=== PATIENT | male | born 1940 | race Caucasian/White ===

== ENCOUNTER 2018-04-27 10:46 | Emergency (ER) | payer MEDICARE, OTHER ==
[2018-04-27 11:02] VITALS: BP 153/83; PULSE 89; RESP 16; TEMP 98.3
[2018-04-27] MEDS ORDERED: DIPH,PERTUS(ACELL)TETVAC-LF 0.5 ML VIAL IM ONE (12:13)
[2018-04-27] MEDS ORDERED: LIDOCAINE 1% INJ 10MG/ML (20 ML MDV) SQ ONE (12:13)
--- NOTE | 2018-04-27 12:20 | ED ---
Wound/Laceration HPI - General Chief Complaint: Wound/Laceration Stated Complaint: R index finger laceration Time Seen by Provider: 04/27/18 12:11 Source: patient, RN notes reviewed Mode of arrival: ambulatory Limitations: no limitations - History of Present Illness Initial Comments: This is a 77-year-old male who presents to the emergency department with chief complaint of right index finger laceration. Patient states that between 9:30 and 10 AM this morning he was at the [employer]. He states that he was talking to somebody and slammed his car door. He states that his right index finger was caught in the door and he lacerated the pad of it. Patient states that he is unsure if he is up-to-date with his tetanus vaccination. He reports normal range of motion and sensation. Denies any other injuries or trauma. Denies fever, chills, chest pain, shortness of breath, abdominal pain, nausea or vomiting, numbness or tingling. - Related Data Allergies Allergy/AdvReac Type Severity Reaction Status Date / Time No Known Allergies Allergy Verified 04/27/18 10:58 Review of Systems ROS Statement: Those systems with pertinent positive or pertinent negative responses have been documented in the HPI. ROS Other: All systems not noted in ROS Statement are negative. Past Medical History Past Medical History: Hyperlipidemia, Hypertension History of Any Multi-Drug Resistant Organisms: None Reported Additional Past Surgical History / Comment(s): bowel surgery Past Psychological History: Depression Smoking Status: Former smoker Past Alcohol Use History: Occasional Past Drug Use History: None Reported General Exam - General Exam Comments Initial Comments: General: Awake and alert, well-developed; in no apparent distress. HEENT: Head atraumatic, normocephalic. Pupils are equal, round and reactive to light. Extraocular movements intact. Oropharynx moist without erythema or exudate. Neck: Supple. Normal ROM. Cardiovascular: Regular rate and rhythm. No murmurs, rubs or gallops. Chest symmetrical. Respiratory: Lungs clear to auscultation bilaterally. No wheezes, rales or rhonchi. Normal respiratory effort with no use of accessory muscles. Musculoskeletal: Normal range of motion of the right index finger. There is an approximately 2.0 cm linear laceration at the distal pad of the right index finger. Bleeding is controlled. Sensation is intact. Radial pulses are 2+ equal and palpable bilaterally. Skin: [place], warm and dry without rashes. Neurological: Alert and oriented x3. CN II-XII grossly intact. Speech is fluent and answers are appropriate. No focal neuro deficits. Psychiatric: Normal mood and affect. No overt signs of depression or anxiety noted. Limitations: no limitations Course Vital Signs 04/27/18 04/27/18 10:58 12:13 Temperature 98.3 F Pulse Rate 89 Respiratory 16 16 Rate Blood Pressure 153/83 O2 Sat by Pulse 97 98 Oximetry Procedures - Laceration Laceration #1 Consent Obtained: verbal consent Indication: laceration Site: hand (right distal index finger ) Size (cm): 2 Description: linear Depth: simple, single layer Anesthetic Used: lidocaine 1% Anesthesia Technique: nerve block Amount (mls): 3 Pre-repair: wound explored, irrigated extensively, deep structures intact Type of Sutures: nylon Size of Sutures: 5-0 Number of Sutures: 4 Technique: simple, interrupted Patient Tolerated Procedure: well, no complications Medical Decision Making - Medical Decision Making This is a 77-year-old male who presents to the emergency department with chief complaint of right index finger laceration. Patient slammed his finger in the car door. He is neurovascularly intact and has normal range of motion. He sustained an approximately 2.0 cm linear laceration at the distal pad of the right index finger. Patient was made up-to-date with tetanus vaccination. 4 sutures were placed and patient tolerated well without complication. X-ray of the right index finger was obtained and revealed no acute osseous lesions. Recommended removal of sutures in 10-14 days. Patient's vital signs are stable and he is in no acute distress. He is in agreement with plan and voices understanding. Patient will be discharged home at this time. All questions answered. - Radiology Data Radiology results: report reviewed X-ray right index finger impression: No acute osseous lesion. Degenerative change. As read by Dr. Easton. Disposition Clinical Impression: Laceration of index finger Disposition: HOME SELF-CARE Condition: Good Instructions: Finger Laceration (ED) Additional Instructions: Please have sutures removed in 10-14 days. Please monitor for any signs of infection including redness, warmth or increased tenderness. Please follow up with primary care provider within 1-2 days. Return to emergency department if symptoms should worsen or any concerns arise. Is patient prescribed a controlled substance at d/c from ED?: No Referrals: Noris Abreu MD [Primary Care Provider] - 1-2 days Time of Disposition: 13:00
--- NOTE | 2018-04-27 12:46 | XR ---
EXAMINATION TYPE: XR finger RT , 3 VIEWS DATE OF EXAM ORDERED: 04/27/2018 HISTORY: index finger lac. COMPARISON: None. FINDINGS: No fracture or dislocation is seen. There are degenerative changes in the DIP joint. IMPRESSION: 1. NO ACUTE OSSEOUS LESION. 2. DEGENERATIVE CHANGE.
== END 2018-04-27 13:00 | disposition home or self-care (01) ==
LOC: EC 10:46
DX: S61.210A Laceration without foreign body of right index finger without damage to nail, initial encounter (principal); Z87.891 Personal history of nicotine dependence; Z23 Encounter for immunization; W23.0XXA Caught, crushed, jammed, or pinched between moving objects, initial encounter; Y92.89 Other specified places as the place of occurrence of the external cause
CPT/HCPCS: 73140; 90715; 99283; 12001; 90471; J2001

== ENCOUNTER → 2019-04-14 | Outpatient (CLI) | payer MEDICARE | END | disposition home or self-care (01) | LOC: LABWHC1 08:54 | PROVIDERS: ATTEND Orthopaedic Surgery | DX: Z01.812 Encounter for preprocedural laboratory examination (principal) | CPT/HCPCS: 87070 ==

== ENCOUNTER 2019-05-27 06:20 | Inpatient (IN) | payer MEDICARE ==
[2019-05-16 13:57] VITALS: BMI 31.6
--- NOTE | 2019-05-27 02:38 | HP ---
HISTORY AND PHYSICAL CHIEF COMPLAINT: Right knee pain. HISTORY OF PRESENT ILLNESS: The patient is a 78-year-old retired gentleman who presents with progressive right knee pain, worsening over the past 6 months. He is having pain with any attempted weightbearing activities. He has tried medications along with injections with only partial temporary relief. PAST MEDICAL HISTORY: Significant for arthritis, hypertension, hypercholesterolemia, benign prostatic hypertrophy, hyperlipidemia, colon cancer, type 2 diabetes. PAST SURGICAL HISTORY: Significant for bowel resection, bilateral hernia repair, bilateral knee arthroscopy, right knee arthrotomy. FAMILY HISTORY: Significant for cancer. SOCIAL HISTORY: Significant for current alcohol use. REVIEW OF SYSTEMS: Sixteen point review of systems otherwise reviewed and is noncontributory. CURRENT MEDICATIONS: Aspirin, Celexa, Cozaar, metformin, simvastatin, Symbicort. He denies drug allergies. PHYSICAL EXAMINATION: On examination, the patient is approximately 5 foot 7, 210 pounds, of mesomorphic habitus. HEENT exam is nonfocal. Neck is supple. He has painless passive motion of the right hip. Straight leg raise is negative. Active motion right knee -12 to 105 degrees of flexion. There is a large effusion. He is tender about the medial joint line. Collaterals are stable, Keshawn is negative, Norma's is equivocal. He has genu varum alignment. His distal neurovascular appears intact in the right lower extremity. Previous x-rays of the right knee obtained in the office show severe medial and patellofemoral compartment narrowing. IMPRESSION: 1. 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 2. Trw-xrjzvay-upanfaweu diabetes. RECOMMENDATIONS: I talked to the patient at length regarding his condition along with treatment options. At this point, he remains quite symptomatic despite conservative measures. After a thorough discussion, he opts to proceed with surgery. We will plan to proceed with right total knee arthroplasty. We will institute DVT prophylaxis postoperatively. The patient underwent preoperative medical evaluation by Dr. Abreu. MMPACHECOL / IJN: [id number] /
[~2019-05-27 06:20] MED LIST: ACETAMINOPHEN TAB 500 MG TAB PO ONE; HYDROmorphone 0.5 MG/0.5 ML SYRINGE IVP PRN; MELOXICAM 7.5 MG TAB PO ONE; TRANEXAMIC ACID 1,000 MG in SODIUM CHLORIDE 0.9% 100 ML IVPB ONE
[2019-05-27] MEDS: LACTATED RINGERS 1,000 ML IV SCH ×2 (07:07→10:47)
[2019-05-27] MEDS ORDERED: MIDAZOLAM (PF) 2 MG/2 ML VIAL IVP ONE (07:17)
[2019-05-27] MEDS ORDERED: TRANEXAMIC ACID 1,000 MG/10 ML VIAL ONE (07:44)
[2019-05-27] MEDS ORDERED: fentaNYL (PF) 50 MCG/ML 2 ML AMP ONE (07:44)
[2019-05-27] MEDS ORDERED: SODIUM CHLORIDE 0.9% 100 ML BAG ONE (07:44)
[2019-05-27] MEDS ORDERED: MIDAZOLAM 2 MG/2 ML VIAL ONE (07:44)
[2019-05-27] MEDS ORDERED: LIDOCAINE 1% 20 ML VIAL (10MG/ML) FOR IV START SQ ONE (07:51)
[2019-05-27] MEDS ORDERED: ROPIVACAINE 246.25 MG, EPINEPHrine 0.5 MG, KETOROLAC 30 MG, cloNIDine HCL/PF 80 MCG, WA... MISCELLANE ONE ×5 (08:08)
[2019-05-27] MEDS ORDERED: ceFAZolin 3,000 MG in SODIUM CHLORIDE 0.9% IRRIGATIO 3,000 ML IRRIGATION ONE (08:31)
[2019-05-27] MEDS ORDERED: LACTATED RINGERS 1,000 ML IV ONE (09:04)
[2019-05-27] MEDS ORDERED: traMADol 50 MG TAB PO PRN (09:48)
[2019-05-27] MEDS ORDERED: ONDANSETRON 4 MG/2 ML VIAL IVP PRN (09:48)
[2019-05-27] MEDS ORDERED: ACETAMINOPHEN TAB 325 MG TAB PO PRN (09:48)
[2019-05-27] MEDS ORDERED: MAGNESIUM HYDROXIDE 2,400 MG/10 ML CUP PO PRN (09:48)
[2019-05-27] MEDS ORDERED: NALOXONE 0.4 MG/ML 1 ML VIAL IV PRN (09:48)
[2019-05-27] MEDS ORDERED: HYDROcodone/APAP 5-325MG 1 EACH TAB PO PRN ×2 (09:48)
[2019-05-27] MEDS ORDERED: ROPIVACAINE 0.2%-NS ON-Q PUMP 1,090 MG, EMPTY PAIN BALL 1 EACH MISCELLANE PRN (10:16)
--- NOTE | 2019-05-27 10:16 | P.OP ---
Date of Procedure: 05/27/19 Preoperative Diagnosis: Right knee severe tricompartmental osteoarthrosis Postoperative Diagnosis: Same Procedure(s) Performed: Right total knee arthroplastycementedposterior stabilized Implants: [employer] journey 2 size 6 cemented femoral component, size 5 cemented tibial component, 10 mm articular surface, 35 mm cemented patellar component. This is a posterior stabilized implant. Anesthesia: regional, local, spinal Surgeon: Steven Turner Rn Embedded #1: Fransico Anaya Estimated Blood Loss (ml): 50 Pathology: other (Bone fragments) Condition: stable Disposition: PACU Indications for Procedure: The patient's a 78-year-old male who presents to progressive right knee pain secondary osteoarthrosis despite conservative measures. A discussion of the risks and benefits of operative intervention versus continued conservative measures was made with patient. To proceed with surgery. Operative risks to include infection, neurovascular injury, development of blood clots, possible component loosening, possible component failure, and possible need for subsequent procedures was discussed. Informed consent was obtained. Operative Findings: As below Description of Procedure: The patient was brought to the operating room, and after induction of spinal anesthesia the right lower extremity was prepped and draped in a normal fashion. The tourniquet was inflated to 270 mm of mercury. A longitudinal incision extending 3 finger breaths above the superior pole of patella extending to the medial aspect the tibial tubercle was then made. The skin and subcutaneous tissues were divided sharply. Electrocautery was used for hemostasis. A medial parapatellar arthrotomy was performed. The medial soft tissues to include the superficial and deep portions of the medial collateral ligament were elevated subperiosteally. The patella was everted. A portion of the retropatellar fat pad was excised sharply. The anterior cruciate ligament was sacrificed. Blunt retractors were placed. A starting hole was made in the distal femur 1 cm anterior to the posterior cruciate ligament origin. An intramedullary femoral guide was then inserted planning on 5 valgus distal cut with 9 mm distal resection. The cutting block was pinned in place. The distal cut was then made. The posterior referencing sizing guide was utilized. I felt size 6 was most appropriate. 3 of external rotation was built into the system and verified off the trans-epicondylar axis and the posterior condyles. The cutting block was pinned in place. The anterior, posterior, and chamfer cuts then made. Bone fragments were removed. The intercondylar guide was placed and the notch cut was made with a reamer. The trial component was then placed. There was good anterior to posterior and medial to lateral fit. The distal peg holes were drilled. The trial component was removed. Attention was then paid towards preparing the proximal tibia. An extra medullary guide was utilized in line with the tibial shaft and second metatarsal distally. I planned on 2 mm resection from the medial compartment. The cutting block was pinned in place. The proximal tibial cut was then made. The bone was removed in one fragment. The remnants of the medial and lateral menisci were excised at the capsular junction with electrocautery. The tibia sized most appropriately at size 5. The trial femoral and tibial components were placed along with a 10 mm articular surface. I was able to obtain full flexion and extension with internal and external rotation. After several flexion and extension cycles, the tibial rotation was marked with electrocautery line with the medial one third of the tibial tubercle. Attention was then paid towards preparing the patella. A patella reamer was utilized taking stem to 14 mm of bone stock. A good flush cut was made. The patella sized most appropriately 35 mm. The peg holes were drilled. The trial components placed. I had good patellofemoral tracking with no hands technique. The trial components were then removed. The tibia was prepared in the appropriate rotation with appropriate drill and keel punch. The posterior osteophytes were removed with a curved osteotome. The flexion and extension gaps were checked and felt to be symmetric at 10 mm. A trial components were then removed. The posterior soft tissues were injected with ropivacaine. The bony surfaces were prepared with pulsatile lavage and dried. The tibial component was then cemented place was fully seated. Excess cement was removed. The femoral component cemented place and was fully seated. Excess cement was removed. The trial 10 mm articular surface was placed and the knee was put in full extension. The patella component was cemented place. After the cement had sufficiently hardened, the knee was again taken through a range of motion. Again I was able to obtain full flexion and extension with varus and valgus stress. The trial 10 mm articular surface was removed and the final one inserted. This was fully seated. Care was taken to avoid any soft tissue interposition. Pulsatile lavage was again utilized. The medial parapatellar arthrotomy was closed with #2 Ethibond suture. The tourniquet was deflated with approximately 70 minutes total tourniquet time. Final hemostasis was obtained with the cautery. There was minimal bleeding therefore a deep drain was not placed. The subcutaneous tissues were reapproximated with interrupted 2-0 Vicryl sutures. The skin was reapproximated with 3-0 subcuticular strata fix suture. Skin tape and adhesive was applied. A sterile dressing was applied. The patient was awoken from sedation and transferred to recovery room in good condition. Blood loss was estimated at 50 mL. No complications were incurred. Sponge and needle counts were correct at the end of the case. Miguel QUEEN assisted during the major components of this case to include exposure, bone resection, implantation, and closure.
--- NOTE | 2019-05-27 10:40 | P.ANPRN ---
Procedure Note - Anesthesia - Nerve Block Performed Right Adductor Canal Infusion Time Out Performed: Yes Date of Procedure: 05/27/19 Procedure Start Time: 07:34 Procedure Stop Time: 07:46 Location of Patient Procedure: PreOp Indication: Acute Post-Operative Pain, Requested by Surgeon Sedation Type: Sedate with meaningful contact maintained Preparation: Sterile Prep, Sterile Dressing Position: Supine Catheter: Indwelling Needle Types: Pajunk Needle Gauge: 21 Ultrasound used to visualize needle placement: Yes Ultrasound used to observe medication spread: Yes Injectate: 0.5% Ropivacaine (see comment for volume) (ropi .5% 20cc) Blood Aspirated: No Pain Paresthesia on Injection Noted: No Resistance on Injection: Normal Image Stored and Saved: Yes Events: Uneventful and Well Tolerated
--- NOTE | 2019-05-27 10:45 | XR ---
EXAMINATION TYPE: XR knee limited RT DATE OF EXAM: 05/27/2019 CLINICAL HISTORY: Right knee pain and arthritis status post total knee replacement. TECHNIQUE: Portable AP and crosstable lateral views of the right knee are obtained immediately posto peratively. COMPARISON: None FINDINGS: Metallic hardware from total right knee arthroplasty is seen and appears satisfactory in a lignment and position. There is evidence of recent surgery with diffuse soft tissue swelling and sub cutaneous emphysema noted. IMPRESSION: METALLIC HARDWARE FROM TOTAL RIGHT KNEE ARTHROPLASTY IS SATISFACTORY IN ALIGNMENT.
--- NOTE | 2019-05-27 12:15 | P.CONS ---
History of Present Illness - Reason for Consult Consult date: 05/27/19 Medical management Requesting physician: Steven Turner - History of Present Illness This is a 78-year-old male patient who presented for an elective total right knee arthroplasty with Dr. Landers. EBL 50. Patient has a known past medical history of osteoarthritis, colon cancer in which she underwent resection approximately 3 years ago diabetes mellitus diet controlled, hyperlipidemia, essential hypertension and ex-smoker. Patient is resting comfortably in bed. Family is at bedside. Patient has minimal complaints of pain to right knee site dressing is clean dry and intact. Patient denies any significant history of irregular heart rate. Patient denies history of DVT or PE. Patient denies chest pain or shortness of breath. Patient denies nausea vomiting or diarrhea. Patient denies any urinary burning or frequency. Review of Systems Please refer to HPI otherwise unremarkable Past Medical History Past Medical History: Cancer, Diabetes Mellitus, Hyperlipidemia, Hypertension, Osteoarthritis (OA), Pneumonia, Prostate Disorder Additional Past Medical History / Comment(s): colon cancer, borderline diabetic- diet control, History of Any Multi-Drug Resistant Organisms: None Reported Past Surgical History: Bowel Resection, Orthopedic Surgery Additional Past Surgical History / Comment(s): open rt knee surgery, [place] knee arthroscopy, Past Anesthesia/Blood Transfusion Reactions: Motion Sickness Past Psychological History: No Psychological Hx Reported Smoking Status: Former smoker Past Alcohol Use History: Occasional Additional Past Alcohol Use History / Comment(s): quit smoking 1975, smoked from 6040-9940, < 1 PPD Past Drug Use History: None Reported - Past Family History Father Family Medical History: Cancer Mother Family Medical History: Cancer Brother(s) Family Medical History: Deep Vein Thrombosis (DVT) Medications and Allergies Home Medications Medication Instructions Recorded Confirmed Type Citalopram Hydrobromide 20 mg PO HS 05/16/19 05/27/19 History [Citalopram HBr] Ergocalciferol (Vitamin D2) 50,000 unit PO MO 05/16/19 05/27/19 History [Vitamin D2] Losartan Potassium [Cozaar] 100 mg PO HS 05/16/19 05/27/19 History Naproxen Sodium [Aleve] 220 mg PO Q12HR 05/16/19 05/27/19 History Simvastatin [Zocor] 20 mg PO HS 05/16/19 05/27/19 History Allergies Allergy/AdvReac Type Severity Reaction Status Date / Time No Known Allergies Allergy Verified 05/16/19 13:46 Physical Exam Vitals: Vital Signs Temp Pulse Resp BP Pulse Ox 05/27/19 10:46 127/70 05/27/19 10:45 65 16 94 L 05/27/19 10:32 65 16 132/77 94 L 05/27/19 10:15 67 16 139/63 94 L 05/27/19 10:09 97.0 F L 68 13 153/67 96 05/27/19 06:51 97.3 F L 74 16 157/74 95 Intake and Output 05/26/19 05/27/19 05/27/19 22:59 06:59 14:59 Intake Total 1201 Output Total 50 Balance 1151 Intake: IV 1201 Output: Estimated Blood Loss 50 Head normocephalic Neck supple Lungs clear to auscultation bilaterally no wheezing or crackles Heart regular rate and rhythm S1-S2, no rub or gallop Abdomen is soft nontender nondistended positive bowel sounds no hepatosplenomegaly Extremities no edema. Right knee dressing is clean dry and intact. Right knee block in place Neuro alert and orientated to 3 Assessment and Plan Assessment: 1. Status post total right knee arthroplasty with Dr. Landers. Postop day 0. Patient currently on Xarelto for DVT prophylaxis per orthopedic services. Pain meds per orthopedic services. 2. History of colon cancer. Patient underwent resection proximally 3 years ago no further treatment 3. History of hyperlipidemia. Patient maintained on Lipitor 4. History of essential hypertension home meds resumed 5. History of osteoarthritis 6. History of diabetes mellitus diet controlled 7. History of ex-smoker DVT prophylaxis xarelto. GI prophylaxis Pepcid A.m. labs ordered Thank you for this consultation we'll continue to follow patient closely throughout Time with Patient: Greater than 30 (Greater than 60% of the total time spent in counseling and coordination of care. I performed an examination of the patient and discussed their management with the Nurse Practitioner. I have reviewed the Nurse Practitioner's notes and agree with the documented findings and plan of care)
[2019-05-27] MEDS: HYDROmorphone 0.5 MG/0.5 ML SYRINGE IVP PRN (19:03)
[2019-05-27] MEDS: SENNOSIDES-DOCUSATE SODIUM 1 EACH TAB PO SCH (21:02)
[2019-05-27] MEDS: CITALOPRAM HYDROBROMIDE 20 MG TAB PO SCH (21:02)
[2019-05-27] MEDS: LOSARTAN 50 MG TAB PO SCH (21:02)
[2019-05-27] MEDS: ATORVASTATIN 10 MG TAB PO SCH (21:02)
[2019-05-28] MEDS: HYDROmorphone 0.5 MG/0.5 ML SYRINGE IVP PRN (01:21)
[2019-05-28] MEDS: LACTATED RINGERS 1,000 ML IV SCH (05:42)
[2019-05-28 07:36] LABS: ALT 29 U/L (21-72); AST 27 U/L (17-59); African American GFR (CKD) >90 (>60 ml/min/1.73 sqM); Albumin 3.6 g/dL (3.5-5.0); Alkaline Phosphatase 35 U/L (38-126); Anion Gap 8 mmol/L; Blood Urea Nitrogen 20 mg/dL (9-20); Calcium 8.2 mg/dL (8.4-10.2); Carbon Dioxide 25 mmol/L (22-30); Chloride 105 mmol/L (98-107); Glucose 135 mg/dL (74-99); Potassium 4.3 mmol/L (3.5-5.1); Sodium 138 mmol/L (137-145); Total Bilirubin 0.6 mg/dL (0.2-1.3); Total Protein 6.1 g/dL (6.3-8.2)
[2019-05-28 07:48] LABS: Basophils % (A) 0 %; Eosinophils # (A) 0.1 k/uL (0-0.7); Eosinophils % (A) 1 %; HCT 35.2 % (39.0-53.0); HGB 11.7 gm/dL (13.0-17.5); Lymphocytes # (A) 1.1 k/uL (1.0-4.8); Lymphocytes % (A) 11 %; MCHC 33.2 g/dL (31.0-37.0); MCV 96.4 fL (80.0-100.0); Monocytes # (A) 0.6 k/uL (0-1.0); Monocytes % (A) 7 %; Neutrophils # (A) 7.5 k/uL (1.3-7.7); Neutrophils % (A) 79 %; Platelet Count 263 k/uL (150-450); RBC 3.65 m/uL (4.30-5.90); RDW 13.5 % (11.5-15.5); WBC 9.4 k/uL (3.8-10.6)
[2019-05-28] MEDS: RIVAROXABAN 10 MG TAB PO SCH (08:37)
[2019-05-28] MEDS: FAMOTIDINE 20 MG TAB PO SCH (08:37)
--- NOTE | 2019-05-28 11:03 | P.PN ---
Subjective Progress Note Date: 05/28/19 This is a 78-year-old male patient who presented for an elective total right knee arthroplasty with Dr. Landers. EBL 50. Patient has a known past medical history of osteoarthritis, colon cancer in which she underwent resection approximately 3 years ago diabetes mellitus diet controlled, hyperlipidemia, e ssential hypertension and ex-smoker. Patient is resting comfortably in bed. Family is at bedside. Patient has minimal complaints of pain to right knee site dressing is clean dry and intact. Patient denies any significant history of irregular heart rate. Patient denies history of DVT or PE. Patient denies chest pain or shortness of breath. Patient denies nausea vomiting or diarrhea. Patient denies any urinary burning or frequency. On 05/28/2019 patient is alert and oriented 3. Patient reports increased pain to bring today compared to yesterday. Patient has been up planning to work with physical therapy. At this time patient denies chest pain or shortness breath. Patient denies nausea vomiting or diarrhea. Patient denies any urinary burning or frequency Objective - Vital Signs Vital signs: Vital Signs Temp 99.5 F 05/28/19 07:00 Pulse 95 05/28/19 07:00 Resp 17 05/28/19 07:00 BP 136/65 05/28/19 07:00 Pulse Ox 95 05/28/19 07:00 Intake & Output 05/27/19 05/28/19 05/28/19 18:59 06:59 18:59 Intake Total 1201 400 Output Total 50 Balance 1151 400 Intake: IV 1201 Intake, IV Titration 400 Amount Lactated Ringers 1,000 ml 400 @ 40 mls/hr IV .Q24H RONALD Rx#:[id number] Output: Estimated Blood Loss 50 Other: Voiding Method Urinal Toilet # Voids 1 1 - Exam Head normocephalic Neck supple Lungs clear to auscultation bilaterally no wheezing or crackles Heart regular rate and rhythm S1-S2, no rub or gallop Abdomen is soft nontender nondistended positive bowel sounds no hepatosplenomegaly Extremities no edema. Right knee dressing is clean dry and intact Neuro alert and orientated to 3 - Labs CBC & Chem 7: 05/28/19 07:05 05/28/19 07:05 Labs: Abnormal Lab Results - Last 24 Hours (Table) 09/04/19 09/04/19 Range/Units 07:05 07:05 RBC 3.65 L (4.30-5.90) m/uL Hgb 11.7 L (13.0-17.5) gm/dL Hct 35.2 L (39.0-53.0) % Glucose 135 H (74-99) mg/dL Calcium 8.2 L (8.4-10.2) mg/dL Alkaline Phosphatase 35 L (38-126) U/L Total Protein 6.1 L (6.3-8.2) g/dL Assessment and Plan Assessment: 1. Status post total right knee arthroplasty with Dr. Landers. Postop day 1. Patient currently on Xarelto for DVT prophylaxis per orthopedic services. Pain meds per orthopedic services. 2. History of colon cancer. Patient underwent resection proximally 3 years ago no further treatment 3. History of hyperlipidemia. Patient maintained on Lipitor 4. History of essential hypertension home meds resumed 5. History of osteoarthritis 6. History of diabetes mellitus diet controlled 7. History of ex-smoker 8. Expected acute blood loss anemia. Hemoglobin 11.7. We'll continue to monitor DVT prophylaxis xarelto. GI prophylaxis Pepcid Anticipate discharge in the next 24-48 hours Thank you for this consultation we'll continue to follow patient closely throughout I performed an examination of the patient and discussed their management with the Nurse Practitioner. I have reviewed the Nurse Practitioner's notes and agree with the documented findings and plan of care
[2019-05-28] MEDS ORDERED: HYDROcodone/APAP 7.5-325MG 1 EACH TAB PO PRN (11:06)
--- NOTE | 2019-05-28 11:28 | P.PN ---
Progress Note - Text 05/28/2019 640am 78-year-old male status post knee replacement by Dr. Turner. Patient seen this morning with a VAS of 4 with the On-Q pump running at 8 mL an hour. Dressing clean dry and intact. Plan to continue On-Q pump infusion
[2019-05-28] MEDS: HYDROcodone/APAP 7.5-325MG 1 EACH TAB PO PRN ×2 (12:07→18:46)
--- NOTE | 2019-05-28 12:49 | P.PN ---
Subjective Progress Note Date: 05/28/19 Principal diagnosis: Status post right total knee arthroplasty Patient evaluated bedside, he's resting comfortably. He does note some increase in pain, we have adjusted his oral pain medication. Patient is a little therapy. He denies any chest pain or shortness of breath. Objective - Vital Signs Vital signs: Vital Signs Temp 99.5 F 05/28/19 07:00 Pulse 95 05/28/19 07:00 Resp 17 05/28/19 07:00 BP 136/65 05/28/19 07:00 Pulse Ox 95 05/28/19 07:00 Intake & Output 05/27/19 05/28/19 05/28/19 18:59 06:59 18:59 Intake Total 1201 400 Output Total 50 Balance 1151 400 Intake: IV 1201 Intake, IV Titration 400 Amount Lactated Ringers 1,000 ml 400 @ 40 mls/hr IV .Q24H RONALD Rx#:[id number] Output: Estimated Blood Loss 50 Other: Voiding Method Urinal Toilet # Voids 1 1 - Exam Right lower extremity: Incision is clean, dry, and intact. The exofin fusion tape is in good condition. There is minimal soft tissue swelling and ecchymosis surrounding the medial and lateral aspects of the incision. Calf is soft, no tenderness with palpation. Plantar flexion, dorsiflexion, EHL, FHL are intact. Sensory exam to light touch throughout the extremity is intact, dorsal pedis pulses 2+. - Labs CBC & Chem 7: 05/28/19 07:05 05/28/19 07:05 Labs: Abnormal Lab Results - Last 24 Hours (Table) 05/28/19 05/28/19 Range/Units 07:05 07:05 RBC 3.65 L (4.30-5.90) m/uL Hgb 11.7 L (13.0-17.5) gm/dL Hct 35.2 L (39.0-53.0) % Glucose 135 H (74-99) mg/dL Calcium 8.2 L (8.4-10.2) mg/dL Alkaline Phosphatase 35 L (38-126) U/L Total Protein 6.1 L (6.3-8.2) g/dL Assessment and Plan Plan: Assessment: Postoperative day #1 status post right total knee arthroplasty Plan: Pain control, plan for discharge on oral medication GI and DVT prophylaxis, continue current medication Wound care instructions discussed Continue physical therapy Encourage incentive spirometer Plan for discharge home tomorrow Time with Patient: Less than 30
[2019-05-28] MEDS: SENNOSIDES-DOCUSATE SODIUM 1 EACH TAB PO SCH (20:16)
[2019-05-28] MEDS: ATORVASTATIN 10 MG TAB PO SCH (20:16)
[2019-05-28] MEDS: CITALOPRAM HYDROBROMIDE 20 MG TAB PO SCH (20:16)
[2019-05-28] MEDS: LOSARTAN 50 MG TAB PO SCH (20:16)
[2019-05-29] MEDS: HYDROcodone/APAP 7.5-325MG 1 EACH TAB PO PRN ×2 (01:58→08:10)
[2019-05-29 07:47] LABS: Basophils # (A) 0.1 k/uL (0-0.2); Basophils % (A) 0 %; Eosinophils # (A) 0.2 k/uL (0-0.7); Eosinophils % (A) 2 %; HCT 37.9 % (39.0-53.0); HGB 12.3 gm/dL (13.0-17.5); Lymphocytes # (A) 2.8 k/uL (1.0-4.8); Lymphocytes % (A) 22 %; MCH 31.5 pg (25.0-35.0); MCHC 32.6 g/dL (31.0-37.0); MCV 96.8 fL (80.0-100.0); Mean Platelet Volume 6.6; Monocytes # (A) 0.9 k/uL (0-1.0); Monocytes % (A) 7 %; Neutrophils # (A) 8.5 k/uL (1.3-7.7); Neutrophils % (A) 67 %; Platelet Count 316 k/uL (150-450); RBC 3.92 m/uL (4.30-5.90); RDW 12.5 % (11.5-15.5); WBC 12.8 k/uL (3.8-10.6)
[2019-05-29 07:51] VITALS: BP 154/67; RESP 14; TEMP 98.7
[2019-05-29 08:00] LABS: ALT 33 U/L (21-72); AST 44 U/L (17-59); African American GFR (CKD) >90 (>60 ml/min/1.73 sqM); Albumin 4.2 g/dL (3.5-5.0); Alkaline Phosphatase 37 U/L (38-126); Anion Gap 12 mmol/L; Blood Urea Nitrogen 16 mg/dL (9-20); Carbon Dioxide 28 mmol/L (22-30); Chloride 100 mmol/L (98-107); Glucose 120 mg/dL (74-99); Sodium 140 mmol/L (137-145); Total Bilirubin 0.9 mg/dL (0.2-1.3); Total Protein 7.5 g/dL (6.3-8.2)
[2019-05-29] MEDS: FAMOTIDINE 20 MG TAB PO SCH (08:09)
[2019-05-29] MEDS: RIVAROXABAN 10 MG TAB PO SCH (08:10)
[2019-05-29 09:28] VITALS: PULSE 95
--- NOTE | 2019-05-29 11:06 | P.PN ---
Subjective Progress Note Date: 05/29/19 This is a 78-year-old male patient who presented for an elective total right knee arthroplasty with Dr. Landers. EBL 50. Patient has a known past medical history of osteoarthritis, colon cancer in which she underwent resection approximately 3 years ago diabetes mellitus diet controlled, hyperlipidemia, e ssential hypertension and ex-smoker. Patient is resting comfortably in bed. Family is at bedside. Patient has minimal complaints of pain to right knee site dressing is clean dry and intact. Patient denies any significant history of irregular heart rate. Patient denies history of DVT or PE. Patient denies chest pain or shortness of breath. Patient denies nausea vomiting or diarrhea. Patient denies any urinary burning or frequency. On 05/28/2019 patient is alert and oriented 3. Patient reports increased pain to bring today compared to yesterday. Patient has been up planning to work with physical therapy. At this time patient denies chest pain or shortness breath. Patient denies nausea vomiting or diarrhea. Patient denies any urinary burning or frequency On 05/29/2019 patient is alert and oriented 3. Patient planning to be discharged home today per orthopedic services. Patient did have increased white blood cell count 12.8. Patient denies any specific acute complaints will order urinary analysis prior to discharge. Patient denies chest pain or shortness of breath. Patient denies nausea vomiting or diarrhea. Patient denies any urinary burning or frequency Objective - Vital Signs Vital signs: Vital Signs Temp 98.7 F 05/29/19 07:00 Pulse 95 05/29/19 08:20 Resp 14 05/29/19 08:20 BP 154/67 05/29/19 07:00 Pulse Ox 95 05/29/19 07:00 Intake & Output 05/28/19 05/29/19 05/29/19 18:59 06:59 18:59 Intake Total 840 Balance 840 Intake: Oral 840 Other: Voiding Method Toilet Toilet Toilet # Voids 1 1 - Exam Head normocephalic Neck supple Lungs clear to auscultation bilaterally no wheezing or crackles Heart regular rate and rhythm S1-S2, no rub or gallop Abdomen is soft nontender nondistended positive bowel sounds no hepatosplenomegaly Extremities no edema. Right knee dressing is clean dry and intact Neuro alert and orientated to 3 - Labs CBC & Chem 7: 05/29/19 07:06 09/05/19 07:06 Labs: Abnormal Lab Results - Last 24 Hours (Table) 05/29/19 05/29/19 Range/Units 07:06 07:06 WBC 12.8 H (3.8-10.6) k/uL RBC 3.92 L (4.30-5.90) m/uL Hgb 12.3 L (13.0-17.5) gm/dL Hct 37.9 L (39.0-53.0) % Neutrophils # 8.5 H (1.3-7.7) k/uL Glucose 120 H (74-99) mg/dL Alkaline Phosphatase 37 L (38-126) U/L Assessment and Plan Assessment: 1. Status post total right knee arthroplasty with Dr. Landers. Postop day 2. Patient currently on Xarelto for DVT prophylaxis per orthopedic services. Pain meds per orthopedic services. Patient to be discharged on eliquis per orthopedic services for DVT prophylaxis 2. History of colon cancer. Patient underwent resection proximally 3 years ago no further treatment 3. History of hyperlipidemia. Patient maintained on Lipitor 4. History of essential hypertension home meds resumed 5. History of osteoarthritis 6. History of diabetes mellitus diet controlled 7. History of ex-smoker 8. Expected acute blood loss anemia. Hemoglobin 11.7. Hemoglobin improving to 12.3 9. Leukocytosis. White blood cell elevated at 2.8 urinary analysis has been ordered. Patient denies any acute symptoms DVT prophylaxis xarelto. GI prophylaxis Pepcid Thank you for this consultation we'll continue to follow patient closely throughout I performed an examination of the patient and discussed their management with the Nurse Practitioner. I have reviewed the Nurse Practitioner's notes and agree with the documented findings and plan of care
[2019-05-29 11:53] LABS: Appearance,Urine Clear (Clear); Bacteria,Urine Rare /hpf; Bilirubin,Urine Negative (Negative); Blood,Urine Small (Negative); Color,Urine Yellow; Glucose,Urine (UA) Negative (Negative); Ketones,Urine Negative (Negative); Leukocyte Esterase,Urine Negative (Negative); Mucus,Urine Moderate /hpf; Nitrite,Urine Negative (Negative); Protein,Urine 1+ (Negative); RBC,Urine 8 /hpf (0-5); Specific Gravity,Urine 1.026 (1.001-1.035); Squamous Epithelial Cell,Urine <1 /hpf (0-4); WBC,Urine 3 /hpf (0-5)
--- NOTE | 2019-05-29 12:06 | P.PN ---
Subjective Progress Note Date: 05/29/19 Principal diagnosis: Right total knee arthroplasty The patient continues to progress with therapy. He notes his pain is under control. He denies fevers or chills. Objective - Vital Signs Vital signs: Vital Signs Temp 98.7 F 05/29/19 07:00 Pulse 95 05/29/19 08:20 Resp 14 05/29/19 08:20 BP 154/67 05/29/19 07:00 Pulse Ox 95 05/29/19 07:00 Intake & Output 05/28/19 05/29/19 05/29/19 18:59 06:59 18:59 Intake Total 840 Balance 840 Intake: Oral 840 Other: Voiding Method Toilet Toilet Toilet # Voids 1 1 - Exam Right knee incision clean, dry, intact. Homans negative right lower extremity. Neurovascular exam intact right lower extremity. - Constitutional General appearance: Present: no acute distress - Integumentary Integumentary Comment(s): Incision healing, no warmth or erythema. - Labs CBC & Chem 7: 05/29/19 07:06 05/29/19 07:06 Labs: Abnormal Lab Results - Last 24 Hours (Table) 05/29/19 05/29/19 05/29/19 Range/Units 07:06 07:06 11:10 WBC 12.8 H (3.8-10.6) k/uL RBC 3.92 L (4.30-5.90) m/uL Hgb 12.3 L (13.0-17.5) gm/dL Hct 37.9 L (39.0-53.0) % Neutrophils # 8.5 H (1.3-7.7) k/uL Glucose 120 H (74-99) mg/dL Alkaline Phosphatase 37 L (38-126) U/L Urine Protein 1+ H (Negative) Urine Blood Small H (Negative) Urine RBC 8 H (0-5) /hpf Urine Bacteria Rare H (None) /hpf Urine Mucus Moderate H (None) /hpf Assessment and Plan Assessment: Status post right total knee arthroplasty Plan: Discharge home with home therapy/visiting nurse. Follow-up 2 weeks. DVT prophylaxis as prescribed. Time with Patient: Less than 30
== END 2019-05-29 14:46 | disposition home health service (06) | DRG 470 ==
LOC: OR 06:20 → 4SSUR 10:06 → OR 05-28 12:49 → 4SSUR 05-29 09:42
PROVIDERS: ADMIT Orthopaedic Surgery; ATTEND Orthopaedic Surgery
PROC: 0SRC0J9 Replacement of Right Knee Joint with Synthetic Substitute, Cemented, Open Approach (ICD-10-PCS; principal; 2019-05-27 08:00)
DX: M17.11 Unilateral primary osteoarthritis, right knee (principal); D62 Acute posthemorrhagic anemia; I10 Essential (primary) hypertension; E78.5 Hyperlipidemia, unspecified; E11.9 Type 2 diabetes mellitus without complications; D72.829 Elevated white blood cell count, unspecified; N40.0 Benign prostatic hyperplasia without lower urinary tract symptoms; E78.00 Pure hypercholesterolemia, unspecified; Z87.891 Personal history of nicotine dependence; Z85.038 Personal history of other malignant neoplasm of large intestine; Z79.84 Long term (current) use of oral hypoglycemic drugs; Z80.9 Family history of malignant neoplasm, unspecified; Z87.01 Personal history of pneumonia (recurrent); Z90.49 Acquired absence of other specified parts of digestive tract; Z82.49 Family history of ischemic heart disease and other diseases of the circulatory system
CPT/HCPCS: 80053; 81001; 85025; 88300

== ENCOUNTER → 2020-02-18 | Outpatient (CLI) | payer MEDICARE ==
--- NOTE | 2020-02-18 10:29 | XR ---
EXAMINATION TYPE: XR chest 2V DATE OF EXAM: 02/18/2020 COMPARISON: NONE HISTORY: Cough for one month. TECHNIQUE: Frontal and lateral views of the chest are obtained. FINDINGS: There is some chronic parenchymal change in the bases suspected without suspicious focal a ir space opacity, pleural effusion, or pneumothorax seen. The cardiac silhouette size is within norm al limits with slightly ectatic and atherosclerotic thoracic aorta. The osseous structures are inta ct. IMPRESSION: No suspicious acute pulmonary process.
== END | disposition home or self-care (01) ==
LOC: RADXRMAIN 09:40
PROVIDERS: ATTEND Internal Medicine
DX: R05 Cough (principal)
CPT/HCPCS: 71046

== ENCOUNTER → 2021-04-06 | Outpatient (CLI) | payer MEDICARE ==
--- NOTE | 2021-04-07 05:21 | MR ---
EXAMINATION TYPE: MR foot RT wo con DATE OF EXAM: 04/06/2021 COMPARISON: None HISTORY: Posterior right tibial tendon tear, right foot pain, and limited range of movement for 3 wee ks. Images obtained from the distal tibia to the bottom of the foot with no contrast. The Achilles tendon is intact. There is a mild ankle joint effusion. The medial and lateral flexor te ndons of the foot appear intact. Specifically the posterior tibial tendon appears intact. The bones o f the midfoot and hindfoot appear intact. I see no bone edema. The metatarsals are intact. There is s ome mild hypertrophic osteoarthritis at the first MP joint. I see no evidence of a fracture. There is some mild subcutaneous edema of the forefoot. The collateral ligaments appear intact. IMPRESSION: There is ankle joint effusion consistent with a moderate synovitis. No evidence of posterior tibial t endon tear. Osteoarthritis at the first MP joint. No fracture seen.
== END | disposition home or self-care (01) ==
LOC: RADMRIMAIN 16:19
PROVIDERS: ATTEND Podiatrist Foot & Ankle Surgery
DX: M25.471 Effusion, right ankle (principal); M76.821 Posterior tibial tendinitis, right leg

== ENCOUNTER → 2025-03-25 | Outpatient (CLI) | payer MEDICARE ==
--- NOTE | 2025-03-25 12:21 | XR ---
EXAMINATION TYPE: XR foot complete RT DATE OF EXAM: 03/25/2025 12:07 PM COMPARISON: None. CLINICAL INDICATION: Male, 84 years old with history of R52 R foot pain, pain TECHNIQUE: XR foot complete RT XX views were obtained. FINDINGS: There is no acute fracture/dislocation evident. Severe degenerative change first metatarsal phalangea l joint. Mild hammertoe deformity. Vascular calcifications. The overlying soft tissue appears unremar kable. IMPRESSION: No acute fracture or dislocation. [facility], , 03/25/2025 12:19 PM
== END | disposition home or self-care (01) ==
LOC: RADXRMAIN 11:55
PROVIDERS: ATTEND Internal Medicine
DX: M20.41 Other hammer toe(s) (acquired), right foot (principal)